=== PATIENT | male | born 1970 | race Caucasian/White ===

== ENCOUNTER → 2021-04-22 | Outpatient (CLI) | payer MEDICARE, MEDICAID ==
[~2021-04-22] MED LIST: ALEVE 220MG220 MG PO; NAPROSYN500 MG PO; NORCO 325 MG-51 TA1 PO; PAIN MEDICATION; TYLENOL 325MG325 MG PO
== END ==
LOC: COL.RAD 11:27
DX: M25.512 Pain in left shoulder (principal)

== ENCOUNTER 2022-09-19 00:20 | Emergency (ER) | payer MEDICARE, MEDICAID ==
[~2022-09-19] VITALS: Ht 167.6 cm; Wt 98.2 kg
[2022-09-19 00:25] VITALS: TEMP 98.3
[2022-09-19 00:41] LABS: BASO % 0.2 % (0.0-2.0); EOS % 0.1 % (0.0-4.0); GRAN # 8.1 K/mm3 (1.4-6.5); GRAN % 73.3 % (42.2-75.2); HEMATOCRIT 43.8 % (42.0-52.0); HEMOGLOBIN 15.9 g/dl (13.5-18.0); LYMPH # 2.1 K/mm3 (1.2-3.4); LYMPH % 18.9 % (20.0-51.0); MEAN CELL VOLUME 82 fl (80.0-100.0); MEAN CORPUSCULAR HEMOGLOBIN 30 pg (27-31); MEAN CORPUSCULAR HGB CONC 36 g/dl (33.0-37.0); MEAN PLATELET VOLUME 9.9 fl (7.4-10.4); MONO # 0.7 K/mm3 (0.1-0.6); MONO % 6.5 % (1.7-9.3); PLATELET COUNT 356 K/mm3 (130-400); RED BLOOD COUNT 5.34 M/mm3 (4.20-5.60); REDCELL DISTRIBUTION WIDTH-CV 13.2 % (11.5-14.5)
[2022-09-19 00:59] LABS: ALANINE AMINOTRANSFERASE 44 U/L (0-55); ALBUMIN 4.2 gm/dL (3.5-5.0); ALKALINE PHOSPHATASE 122 U/L (40-150); ANION GAP 10 mmol/L (7-16); AST,SGOT 20 U/L (5-34); BILIRUBIN,TOTAL 0.5 mg/dL (0.2-1.2); BLOOD UREA NITROGEN 15 mg/dL (8-26); CALCIUM 9.5 mg/dL (8.4-10.2); CARBON DIOXIDE 21 mmol/L (22-29); CHLORIDE 108 mmol/L (98-107); CREATININE, serum 0.86 mg/dL (0.72-1.25); GLUCOSE 142 mg/dL (70-99); SODIUM 139 mmol/L (136-145); TOTAL PROTEIN 8.1 gm/dL (6.2-8.1)
[2022-09-19 01:05] LABS: TROPONIN-I < 0.010 ng/mL (0.00-0.033)
[2022-09-19] MEDS ORDERED: ZITHROMAX Z PA250 MG PO (01:35)
[2022-09-19 01:55] VITALS: BP 114/82; PULSE 60
== END 2022-09-19 01:55 | disposition home or self-care (01) ==
LOC: COL.ER 00:20
PROVIDERS: Emergency Medicine
DX: R05.9 Cough, unspecified (principal); R51.9 Headache, unspecified; D72.829 Elevated white blood cell count, unspecified; R06.02 Shortness of breath
CPT/HCPCS: J1885; J8540

== ENCOUNTER 2024-01-05 12:00 | Emergency (ER) | payer MEDICARE, MEDICAID ==
[~2024-01-05] VITALS: Ht 167.6 cm; Wt 94.5 kg
[~2024-01-05 12:00] MED LIST changes: +ZITHROMAX Z PA250 MG PO
[2024-01-05 12:04] VITALS: TEMP 98
[2024-01-05 12:36] LABS: BASO % 0.5 % (0.0-2.0); EOS # 0.7 K/mm3 (0.0-0.7); EOS % 9.5 % (0.0-4.0); GRAN # 4.1 K/mm3 (1.4-6.5); GRAN % 54.5 % (42.2-75.2); HEMATOCRIT 40.1 % (42.0-52.0); HEMOGLOBIN 14.4 g/dl (13.5-18.0); LYMPH % 26.9 % (20.0-51.0); MEAN CELL VOLUME 84 fl (80.0-100.0); MEAN CORPUSCULAR HEMOGLOBIN 30 pg (27-31); MEAN CORPUSCULAR HGB CONC 36 g/dl (33.0-37.0); MEAN PLATELET VOLUME 9.9 fl (7.4-10.4); MONO # 0.6 K/mm3 (0.1-0.6); MONO % 8.3 % (1.7-9.3); PLATELET COUNT 245 K/mm3 (130-400); RED BLOOD COUNT 4.79 M/mm3 (4.20-5.60); REDCELL DISTRIBUTION WIDTH-CV 12.8 % (11.5-14.5)
[2024-01-05] MEDS ORDERED: amLODIPine 5 MG TAB PO ONE (12:45)
[2024-01-05 12:55] LABS: ALANINE AMINOTRANSFERASE 49 U/L (0-55); ALKALINE PHOSPHATASE 98 U/L (40-150); ANION GAP 12 mmol/L (7-16); AST,SGOT 39 U/L (5-34); BILIRUBIN,TOTAL 0.9 mg/dL (0.2-1.2); BLOOD UREA NITROGEN 13 mg/dL (8-26); CALCIUM 9.4 mg/dL (8.4-10.2); CHLORIDE 104 mEq/L (98-107); CREATININE, serum 0.87 mg/dL (0.72-1.25); GLUCOSE 110 mg/dL (70-99); POTASSIUM 3.9 mEq/L (3.5-4.5); SODIUM 136 mEq/L (136-145); TOTAL PROTEIN 7.4 g/dl (6.2-8.1)
[2024-01-05 13:04] LABS: TROPONIN-I < 0.010 ng/mL (0.00-0.033)
[2024-01-05] MEDS ORDERED: NORVASC 5MG5 MG/TAB PO (13:39)
[2024-01-05 13:41] VITALS: BP 137/99; PULSE 54
== END 2024-01-05 13:52 | disposition home or self-care (01) ==
LOC: COL.ER 12:00
PROVIDERS: Family Medicine
DX: I10 Essential (primary) hypertension (principal); Z79.899 Other long term (current) drug therapy

== ENCOUNTER → 2024-03-13 | Outpatient (CLI) | payer OTHER ==
[~2024-03-13] MED LIST changes: +NORVASC 5MG5 MG/TAB PO
== END ==
LOC: COL.RAD 17:17
DX: M25.511 Pain in right shoulder (principal)

== ENCOUNTER → 2024-04-12 | Outpatient (CLI) | payer OTHER | LOC: COL.RAD 09:48 | DX: M75.121 Complete rotator cuff tear or rupture of right shoulder, not specified as traumatic (principal); M19.011 Primary osteoarthritis, right shoulder ==